=== PATIENT | male | born 1970 | race Caucasian/White ===

== ENCOUNTER 2017-08-12 09:06 | Emergency (ER) | payer BC ==
--- NOTE | 2017-08-12 09:50 | EDM.PDOC ---
ED HPI GENERAL MEDICAL PROBLEM - General Stated Complaint: LEFT WRIST PAIN Time Seen by Provider: 08/12/17 09:21 Source of Information: Reports: Patient History Limitations: Reports: No Limitations - History of Present Illness INITIAL COMMENTS - FREE TEXT/NARRATIVE: Pt. states that he fell on the ice 2 days ago, landing on an outstretched L hand. Denies stiking his head. Denies paresthesia in the distal portion of the hand/fingers. Denies any injury other than what is isolated to his L wrist. Pt. states that he "doesn't think it is broken" and apologized numerous times for "wasting our time". Pt. was assured that he wasn't wasting anyone's time, and that he could use the ER any time he felt he needed to. Location: Reports: Upper Extremity, Left Quality: Reports: Ache - Related Data Allergies Allergy/AdvReac Type Severity Reaction Status Date / Time No Known Allergies Allergy Verified 07/08/15 12:49 ED ROS GENERAL - Review of Systems Review Of Systems: See Below Musculoskeletal: Reports: Other (L wrist pain) Skin: Reports: No Symptoms Neurological: Reports: No Symptoms ED EXAM, GENERAL - Physical Exam Exam: See Below Exam Limited By: No Limitations General Appearance: Alert, WD/WN, No Apparent Distress Peripheral Pulses: 3+: Radial (L), Radial (R) Extremities: Normal Capillary Refill, Limited Range of Motion, Other (No ecchymosis or significant edema noted to the wrist. No crepitus noted.) Neurological: Alert, Oriented, Normal Cognition, Normal Gait, No Motor/Sensory Deficits. No: Sensory/Motor Deficit Psychiatric: Anxious Departure - Departure Time of Disposition: 09:25 Disposition: Eloped 07 Clinical Impression: Wrist pain, acute - Discharge Information - Assessment/Plan Assessment:: L wrist pain Plan: Pt. 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 He had already before I could speak with the pt.
[2017-08-12 14:49] VITALS: BP 144/107
== END 2017-08-12 09:25 | disposition left against medical advice (07) ==
LOC: VM.ED 09:06
DX: M25.532 Pain in left wrist (principal)
CPT/HCPCS: 99283

== ENCOUNTER 2019-10-08 17:00 | Emergency (ER) | payer BC, MEDICAID ==
[2019-10-08 17:39] LABS: ANION GAP 20.4 mmol/L (10-20); CHLORIDE,CL 108 mmol/L (98-107); SODIUM,NA 142 mmol/L (136-145)
--- NOTE | 2019-10-08 17:40 | EDM.PDOC ---
ED HPI GENERAL MEDICAL PROBLEM - General Chief Complaint: Drug or Alcohol Abuse Stated Complaint: Passed out Time Seen by Provider: 10/08/19 17:15 Source of Information: Reports: Patient, EMS, Family History Limitations: Reports: No Limitations - History of Present Illness INITIAL COMMENTS - FREE TEXT/NARRATIVE: Patient brought in via EMS after being found at home laying next to a car on the ground. Patient states he has been moving all day today and not sure how he ended up on the ground. Per his girlfriend via telephone call she states she watched him fall states he was carrying a microwave to the vehicle and kind of slumped over while putting the microwave in the car. Per the patient's he states he had 5 or 6 shots of 99 bananas liquor today but per the girlfriend states he has not drank anything since yesterday with a drink about 8-9 shots of 99 banana liquor. Patient states that he has been trying to cut back to quit drinking over the last couple of days states he normally drinks 5 or 6 shots a day states he wants to quit but he does not want to go through detox states he can do this on his own. Patient has no complaints at this time. He has no health problems and takes no medications he has no allergies no known medications Onset: Today Duration: Hour(s): Associated Symptoms: Reports: No Other Symptoms. 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 Denies: Oxygen - Related Data Allergies Allergy/AdvReac Type Severity Reaction Status Date / Time No Known Allergies Allergy Verified 10/08/19 17:21 Home Meds: Home Meds . 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 Denies: Chest Pain, Blood Pressure Problem, Claudication, Dyspnea on Exertion, Lightheadedness, Palpitations Endocrine: Reports: No Symptoms GI/Abdominal: Reports: No Symptoms. Denies: Abdominal Pain, Black Stool, Bloody Stool, Constipation, Nausea : Reports: No Symptoms Musculoskeletal: Reports: No Symptoms Skin: Reports: No Symptoms Neurological: Reports: Syncope. Denies: Confusion, Dizziness, Headache, Numbness, Paresthesia, Pre-Existing Deficit, Seizure, Tingling, Tremors, Trouble Speaking, Difficulty Walking, Weakness, Change in Speech, Gait Disturbance Psychiatric: Reports: No Symptoms Hematologic/Lymphatic: Reports: No Symptoms Immunologic: Reports: No Symptoms - Physical Exam Exam: See Below Exam Limited By: Other (Patient is alert and oriented except a year but has normal conversation and normal logical thought process answers all questions and follows all commands appropriately. He is noted to be tachycardic and hypertensive at this time although he gives no signs or symptoms of any endorgan damage.) General Appearance: Alert, WD/WN, No Apparent Distress Eye Exam: Bilateral Eye: EOMI, PERRL (perrla ) Ears: Normal External Exam, Normal Canal, Hearing Grossly Normal, Normal TMs, Other (No noted blood behind the panic membrane bilateral) Nose: Normal Inspection, Normal Mucosa, No Blood, Other (There is no evidence or signs or symptoms of any facial or head trauma there is no tenderness palpation over any of the sinus cavities or crepitus abrasions or ecchymosis) Throat/Mouth: Normal Inspection, Normal Lips, Normal Teeth, Normal Gums, Normal Oropharynx, Normal Voice, No Airway Compromise, Evidence of Tongue Biting ( There is a mild 2 mm superficial abrasion noted to the right side of the tongue) Head Exam: Atraumatic, Normocephalic. No: Scalp Lacerations, Scalp Swelling, Scalp Tenderness, Facial Abrasions, Facial Ecchymosis Neck: Normal Inspection, Supple, Non-Tender, Full Range of Motion, Other ( Patient has full range of motion with his neck no tenderness palpation or step- offs noted) Respiratory/Chest: No Respiratory Distress, Lungs Clear, Normal Breath Sounds, No Accessory Muscle Use, Chest Non-Tender Cardiovascular: Normal Peripheral Pulses, Regular Rate, Rhythm, No Edema, No Gallop, No JVD, No Murmur, No Rub, Tachycardia GI/Abdominal: Normal Bowel Sounds, Soft, Non-Tender, No Organomegaly, No Distention. 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 extremities lower extremity bilateral) Back Exam: Normal Inspection Extremities: Normal Inspection, Normal Range of Motion, Non-Tender, No Pedal Edema Psychiatric: Normal Affect, Normal Mood Skin Exam: Warm, Dry, Intact, Normal Color, No Rash Course - Vital Signs Text/Narrative:: CBC BMP urinalysis uds head CT was performed secondary to syncopal episode/ questionable fall and the patient not being alerted to what year this is EKG Patient was seen by myself Ethan Bullock PA-C for some reason the computer keeps coming up to Isaiah justin as a provider he did not see ,examine he had interaction and was not in the facility at the time of the patient's arrival Head CT negative CBC 9.8 hemoglobin 30 hematocrit potassium 3.4 glucose 166 patient states he is not able to void will not give a urine or UDS sample Patient at this time wishes to go home and signed out AMA he is alert and oriented x4 follows all neurological exam cranial nerves II through XII are intact he has normal Romberg [id number] converses well and follows all commands appropriately I explained to him the risk versus benefits and course of treatment at this time he states he does not want any wants to go home he is willing to sign out AMA. I discussed with him in regards to the tachycardia and hypertension he states he will follow-up as an outpatient and again he does not wish to stay or be further evaluated and will sign out AMA. Last Recorded V/S: Last Vital Signs Temp 37.3 C 10/08/19 17:00 Pulse 137 H 10/08/19 17:00 Resp 20 10/08/19 17:00 BP 180/107 H 10/08/19 17:00 Pulse Ox 98 10/08/19 17:00 - Orders/Labs/Meds Orders: Active Orders 24 hr Category Date Time Status EKG 12 Lead [EKG Documentation Completion] [RC] URGENT Care 10/08/19 17:46 Active DRUG SCREEN, URINE [URCHEM] Stat Lab 10/08/19 17:59 Ordered UA W/MICROSCOPIC [URIN] Stat Lab 10/08/19 17:17 Ordered Sodium Chloride 0.9% [Normal Saline] 1,000 ml Med 10/08/19 17:50 Active IV ONETIME Medication Orders Sodium Chloride (Normal Saline) 1,000 mls @ 999 mls/hr IV ONETIME ONE Stop: 10/08/19 18:50 Last Admin: 10/08/19 17:52 Dose: 999 mls/hr Labs: Laboratory Tests 10/08/19 10/08/19 Range/Units 17:20 17:20 WBC 7.5 (4.0-10.0) x10^3/uL RBC 3.25 L (4.5-6.0) x10^6/uL Hgb 9.8 L (14.0-18.0) g/dL Hct 30.3 L (40.0-52.0) % MCV 93.2 H (78.0-93.0) fL MCH 30.2 (26.0-32.0) pg MCHC 32.3 (32.0-36.0) g/dL RDW Coeff of Familia 19.2 H (10.0-15.0) % Plt Count 120 L (130-400) x10^3/uL Neut % (Auto) 75.8 (50.0-80.0) % Lymph % (Auto) 17.5 L (25.0-50.0) % Traverse % (Auto) 6.0 (2.0-11.0) % Eos % (Auto) 0.4 (0.0-4.0) % Baso % (Auto) 0.3 (0.2-1.2) % Sodium 142 (136-145) mmol/L Potassium 3.4 L (3.5-5.1) mmol/L Chloride 108 H (98-107) mmol/L Carbon Dioxide 17 L (21-32) mmol/L Anion Gap 20.4 H (10-20) mmol/L BUN 14 (7-18) mg/dL Creatinine 1.2 (0.70-1.30) mg/dL Est Cr Clr Drug Dosing TNP Estimated GFR (MDRD) > 60 Glucose 166 H (74-106) mg/dL Calcium 8.7 (8.5-10.1) mg/dL Meds: Medications Generic Name Dose Route Start Last Admin Trade Name Freq PRN Reason Stop Dose Admin Sodium Chloride 1,000 mls @ 999 mls/hr 10/08/19 17:50 10/08/19 17:52 Normal Saline IV 10/08/19 18:50 999 mls/hr ONETIME ONE Administration Departure - Departure Time of Disposition: 18:15 Disposition: Against Medical Advice 07 Condition: Good Clinical Impression: Syncope and collapse, Hypertension - Discharge Information *PRESCRIPTION DRUG MONITORING PROGRAM REVIEWED*: No *COPY OF PRESCRIPTION DRUG MONITORING REPORT IN PATIENT SHABBIR: No Instructions: Near-Syncope, [id number], Hypertension, Adult, [id number] Referrals: PCP,None [Primary Care Provider] - Forms: ED Department Discharge Additional Instructions: Return to the emergency room if anything changes or gets worse such as passing out lightheadedness dizziness nausea vomiting headache vision changes or anything that does not feel normal to yourself Follow-up with her primary care provider in the next 24 to 48 hours Make sure you drink plenty of fluids over the next 24 hours eight 8 ounce glasses of water daily is recommended Sepsis Event Note - Evaluation Sepsis Screening Result: No Definite Risk - Focused Exam Vital Signs: Vital Signs Temp Pulse Resp BP Pulse Ox 10/08/19 17:00 37.3 C 137 H 20 180/107 H 98 Date Exam was Performed: 10/08/19 Time Exam was Performed: 18:20 - Problem List & Annotations (1) Hypertension SNOMED Code(s): 47056673 Code(s): I10 - ESSENTIAL (PRIMARY) HYPERTENSION Status: Acute Current Visit: Yes (2) Syncope and collapse SNOMED Code(s): 127638945 Code(s): R55 - SYNCOPE AND COLLAPSE Status: Acute Current Visit: Yes - My Orders Last 24 Hours: My Active Orders 10/08/19 17:17 UA W/MICROSCOPIC [URIN] Stat 10/08/19 17:46 EKG 12 Lead [EKG Documentation Completion] [RC] URGENT 10/08/19 17:59 DRUG SCREEN, URINE [URCHEM] Stat - Assessment/Plan Last 24 Hours: My Active Orders 10/08/19 17:17 UA W/MICROSCOPIC [URIN] Stat 10/08/19 17:46 EKG 12 Lead [EKG Documentation Completion] [RC] URGENT 10/08/19 17:59 DRUG SCREEN, URINE [URCHEM] Stat
[2019-10-08] MEDS ORDERED: Sodium Chloride 0.9% 1,000 ML IV ONE (17:50)
--- NOTE | 2019-10-08 17:59 | CT ---
[id number] CT/CT Head WO IV EXAM: CT Head WO IV CLINICAL DATA: LOC ETOH. COMPARISON STUDY: None FINDINGS: No intracranial hemorrhage, extra-axial fluid collection, mass, or acute ischemia. Soft tissues are unremarkable. Paranasal sinuses and mastoid air cells are clear. IMPRESSION: No acute intracranial findings. Rodney Leone DO 10/08/19 [id number] Thank you for allowing us to participate in the care of your patient.
[2019-10-08 18:28] VITALS: BP 160/105; PULSE 125
== END 2019-10-08 18:29 | disposition left against medical advice (07) ==
LOC: VM.ED 17:00
DX: R55 Syncope and collapse (principal); F17.210 Nicotine dependence, cigarettes, uncomplicated; I10 Essential (primary) hypertension
CPT/HCPCS: 36415; 70450; 80048; 85025; 93005; 96360; 99285; J7030; 99284-GF

== ENCOUNTER 2021-02-02 15:46 | Inpatient (IN) | payer BC, MEDICAID ==
[2021-02-02] MEDS ORDERED: Sodium Chloride 0.9% 1,000 ML IV SCH ×2 (16:45→19:00)
[2021-02-02 16:51] LABS: ANION GAP 34.2 mmol/L (5-15); CHLORIDE,CL 82 mmol/L (98-107)
[2021-02-02 16:55] LABS: SODIUM,NA 124 mmol/L (136-145)
[2021-02-02] MEDS ORDERED: Sodium Chloride 0.9% 10 ML Syringe FLUSH PRN (17:07)
[2021-02-02] MEDS ORDERED: Piperacillin/Tazobactam 3.375 GM in Sodium Chloride 0.9% 100 ML IV ONE (17:08)
--- NOTE | 2021-02-02 17:28 | EDM.PDOC ---
ED HPI GENERAL MEDICAL PROBLEM - General Stated Complaint: ER Time Seen by Provider: 02/02/21 19:26 Source of Information: Reports: Patient History Limitations: Reports: Altered Mental Status - History of Present Illness INITIAL COMMENTS - FREE TEXT/NARRATIVE: Pt. presents to ER with complaints of abdominal pain, nausea, vomiting, jaundice, and fatigue. Pt. states that he has been feeling poorly for about 5 days. He noticed he was jaundiced today. He has been experiencing bright red rectal bleeding for some time, and is scheduled to have a lower GI scope next month. States that he has had hemorrhoids with bright rectal bleeding for about 10 years but states that it is worse the past few days. He is an alcoholic. Pt. states that he drinks about 6-7 drinks per day. Liver enzymes were elevated in the clinic 2 weeks ago-alk phos 332, AST 201, ALT 93. T bili was 0.4. It looks as though he has had elevated LFTs for at least 5 years. Denies any substernal chest pain. Complains of shortness of breath, particularly with activity. O2 sat was in the high 90% range in the ambulance. Pt. has been refusing to come to the hospital, but came today when he noticed the jaundice. Onset Date: 01/22/21 Location: Reports: Abdomen, Generalized Associated Symptoms: Reports: Nausea/Vomiting. Denies: Fever/Chills - Related Data Allergies Allergy/AdvReac Type Severity Reaction Status Date / Time No Known Allergies Allergy Verified 01/15/21 13:48 Home Meds: Home Meds lisinopriL [Lisinopril] 10 mg PO DAILY 01/15/21 [History] Past Medical History - Past Health History Medical/Surgical History: Denies Medical/Surgical History Cardiovascular History: Reports: Hypertension Gastrointestinal History: Reports: Other (See Below) Other Gastrointestinal History: rectal bleeding Psychiatric History: Reports: Addiction - Past Surgical History Musculoskeletal Surgical History: Reports: Other (See Below) Other Musculoskeletal Surgeries/Procedures:: 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 Denies: Fever, Chills HEENT: Reports: No Symptoms Respiratory: Reports: Shortness of Breath Cardiovascular: Reports: Dyspnea on Exertion. Denies: Chest Pain, Palpitations Endocrine: Reports: No Symptoms GI/Abdominal: Reports: Abdominal Pain, Bloody Stool, Distension, Nausea : Reports: No Symptoms Musculoskeletal: Reports: No Symptoms Skin: Reports: Jaundice Neurological: Reports: Confusion (mild confusion) Psychiatric: Reports: No Symptoms Hematologic/Lymphatic: Reports: No Symptoms ED EXAM, GENERAL - Physical Exam Exam: See Below Exam Limited By: Intoxication General Appearance: Alert, WD/WN, No Apparent Distress Eye Exam: Bilateral Eye: EOMI, PERRL, Other (jaundice) Throat/Mouth: Normal Inspection, Normal Lips, Normal Voice, No Airway Compromise Head: Atraumatic, Normocephalic Neck: Normal Inspection, Supple, Non-Tender, Full Range of Motion Respiratory/Chest: Lungs Clear, Normal Breath Sounds, No Accessory Muscle Use, Chest Non-Tender Cardiovascular: Normal Peripheral Pulses, Regular Rate, Rhythm, No Edema Peripheral Pulses: 3+: Radial (L) GI/Abdominal: Distended, Rigid, Tender, Hepatomegaly (Male) Exam: Normal Inspection Rectal (Males) Exam: Bloody Stool, Hemorrhoids, Other (Massive hemorrhoids, evidence of previous rectal bleeding) Back Exam: Normal Inspection, Full Range of Motion Extremities: Non-Tender, No Pedal Edema, Normal Capillary Refill Neurological: Alert, Oriented, CN II-XII Intact, No Motor/Sensory Deficits, Confused (Mildly confused, slurred speech (GRISEL greater than 200)) #1 Interpretation Rhythm: NSR [place]: Normal P-Wave: Present QRS: Normal ST-T: Normal QT: Normal Course - Orders/Labs/Meds Orders: Active Orders 24 hr Category Date Time Status EKG Documentation Completion [RC] STAT Care 02/02/21 16:02 Active Insert Lee Catheter [Insert Urinary Catheter] [OM.PC] Care 02/02/21 18:00 Ordered Q24H Urinary Catheter Assessment [RC] ASDIRECTED Care 02/02/21 17:58 Active Abdomen 1V Upright [CR] Stat Exams 02/02/21 18:17 Ordered CULTURE BLOOD [BC] Stat Lab 02/02/21 16:19 Results CULTURE BLOOD [BC] Stat Lab 02/02/21 16:23 Received REFLEX LACTIC ACID YES OR NO [CHEM] Routine Lab 02/02/21 17:07 Received Norepinephrine [Levophed] 4 mg Med 02/02/21 18:00 Active Dextrose 5% in Water 246 ml IV TITRATE Phytonadione [AquaMephyton] 10 mg Med 02/02/21 18:51 Ordered Sodium Chloride 0.9% [Normal Saline] 100 ml IV ONETIME Sodium Chloride 0.9% [Normal Saline] 1,000 ml Med 02/02/21 16:45 Active IV ASDIRECTED Sodium Chloride 0.9% [Normal Saline] 1,000 ml Med 02/02/21 19:00 Ordered IV ASDIRECTED Sodium Chloride 0.9% [Saline Flush] Med 02/02/21 17:07 Active 10 ml FLUSH ASDIRECTED PRN Blood Culture x2 Reflex Set [OM.PC] Stat Oth 02/02/21 16:06 Ordered Peripheral IV Insertion Adult [OM.PC] Routine Oth 02/02/21 17:07 Ordered Medication Orders Sodium Chloride (Normal Saline) 1,000 mls @ 1,000 mls/hr IV ASDIRECTED MACO Last Admin: 02/02/21 17:15 Dose: 1,000 mls/hr Documented by: LUCAS Norepinephrine Bitartrate 4 mg (/ Dextrose/Water) 250 mls @ 15 mls/hr IV TITRATE MACO; Protocol Phytonadione 10 mg/ Sodium (Chloride) 101 mls @ 300 mls/hr IV ONETIME ONE Stop: 02/02/21 19:10 Sodium Chloride (Normal Saline) 1,000 mls @ 1,000 mls/hr IV ASDIRECTED MACO Sodium Chloride (Sodium Chloride 0.9% 10 Ml Syringe) 10 ml FLUSH ASDIRECTED PRN PRN Reason: Keep Vein Open Labs: Laboratory Tests 02/02/21 02/02/21 02/02/21 Range/Units 16:19 16:19 16:19 WBC 16.4 H (4.0-10.0) x10^3/uL RBC 3.63 L (4.5-6.0) x10^6/uL Hgb 10.0 L (14.0-18.0) g/dL Hct 29.5 L (40.0-52.0) % MCV 81.3 (78.0-93.0) fL MCH 27.5 (26.0-32.0) pg MCHC 33.9 (32.0-36.0) g/dL RDW Coeff of Familia 22.2 H (10.0-15.0) % Plt Count 99 L (130-400) x10^3/uL Add Manual Diff Yes Neutrophils % (Manual) 71 (50-80) % Band Neutrophils % 9 H (0-6) % Lymphocytes % (Manual) 14 L (25-50) % Monocytes % (Manual) 4 (2-11) % Eosinophils % (Manual) 2 (0-4) % Absolute Neutrophils 13.1 H (1.8-7.7) x10^3/uL Lymphocytes # (Manual) 2.3 (1.0-4.8) x10^3/uL Monocytes # (Manual) 0.7 (0.0-0.8) x10^3/uL Eosinophils # (Manual) 0.3 (0.0-0.5) x10^3/uL Platelet Estimate Decreased L Anisocytosis 2+ moderate H PT > 133.0 H (9.9-12.5) SEC INR > 13.0 H* (2.0-3.5) APTT (25.6-32.8) SEC Sodium 124 L* (136-145) mmol/L Potassium 3.2 L (3.5-5.1) mmol/L Chloride 82 L (98-107) mmol/L Carbon Dioxide 11 L (21-32) mmol/L Anion Gap 34.2 H (5-15) mmol/L BUN 23 H (7-18) mg/dL Creatinine 3.9 H* D (0.70-1.30) mg/dL Est Cr Clr Drug Dosing TNP Estimated GFR (MDRD) 17 Glucose 165 H (70-99) mg/dL Lactic Acid (0.4-2.0) mmol/L Calcium 7.4 L (8.5-10.1) mg/dL Corrected Calcium 9.2 (8.5-10.1) mg/dL Phosphorus 4.9 H (2.6-4.7) mg/dL Magnesium 2.0 (1.8-2.4) mg/dL Total Bilirubin 16.1 H* (0.2-1.0) mg/dL AST 186 H (15-37) U/L ALT 165 H (16-63) U/L Alkaline Phosphatase 263 H (46-116) U/L Troponin I High Sens 122 H* (<=76) ng/L Total Protein 5.5 L (6.4-8.2) g/dL Albumin 1.7 L (3.4-5.0) g/dL Globulin 3.8 Albumin/Globulin Ratio 0.45 Urine Color (YELLOW) Urine Appearance (CLEAR) Urine pH (5.0-8.0) Ur Specific Mather Urine Protein (NEGATIVE) mg/dL Urine Glucose (UA) (NEGATIVE) mg/dL Urine Ketones (NEGATIVE) mg/dL Urine Occult Blood (NEGATIVE) Urine Nitrite (NEGATIVE) Urine Bilirubin (NEGATIVE) Urine Urobilinogen (0.2) EU/dL Ur Leukocyte Esterase (NEGATIVE) Urine RBC (NOT SEEN) /HPF Urine WBC (NOT SEEN) /HPF Amorphous Sediment Urine Bacteria (NOT SEEN) /HPF Granular Casts (Auto) Urine Mucus (NOT SEEN) /LPF Urine Opiates Screen (NEGATIVE) Ur Buprenorphine Scrn (NEGATIVE) Ur Oxycodone Screen (NEGATIVE) Urine Methadone Screen (NEGATIVE) Ur Barbiturates Screen (NEGATIVE) Ur Phencyclidine Scrn (NEGATIVE) Ur Amphetamine Screen (NEGATIVE) U Methamphetamines Scrn (NEGATIVE) Urine MDMA Screen (NEGATIVE) U Benzodiazepines Scrn (NEGATIVE) U Cocaine Metab Screen (NEGATIVE) U Marijuana (THC) Screen (NEGATIVE) Ethyl Alcohol 208 H (0-3) mg/dL Blood Type 02/02/21 02/02/21 02/02/21 Range/Units 16:19 16:19 16:19 WBC (4.0-10.0) x10^3/uL RBC (4.5-6.0) x10^6/uL Hgb (14.0-18.0) g/dL Hct (40.0-52.0) % MCV (78.0-93.0) fL MCH (26.0-32.0) pg MCHC (32.0-36.0) g/dL RDW Coeff of Familia (10.0-15.0) % Plt Count (130-400) x10^3/uL Add Manual Diff Neutrophils % (Manual) (50-80) % Band Neutrophils % (0-6) % Lymphocytes % (Manual) (25-50) % Monocytes % (Manual) (2-11) % Eosinophils % (Manual) (0-4) % Absolute Neutrophils (1.8-7.7) x10^3/uL Lymphocytes # (Manual) (1.0-4.8) x10^3/uL Monocytes # (Manual) (0.0-0.8) x10^3/uL Eosinophils # (Manual) (0.0-0.5) x10^3/uL Platelet Estimate Anisocytosis PT (9.9-12.5) SEC INR (2.0-3.5) APTT 69.3 H (25.6-32.8) SEC Sodium (136-145) mmol/L Potassium (3.5-5.1) mmol/L Chloride (98-107) mmol/L Carbon Dioxide (21-32) mmol/L Anion Gap (5-15) mmol/L BUN (7-18) mg/dL Creatinine (0.70-1.30) mg/dL Est Cr Clr Drug Dosing Estimated GFR (MDRD) Glucose (70-99) mg/dL Lactic Acid 22.8 H* (0.4-2.0) mmol/L Calcium (8.5-10.1) mg/dL Corrected Calcium (8.5-10.1) mg/dL Phosphorus (2.6-4.7) mg/dL Magnesium (1.8-2.4) mg/dL Total Bilirubin (0.2-1.0) mg/dL AST (15-37) U/L ALT (16-63) U/L Alkaline Phosphatase (46-116) U/L Troponin I High Sens (<=76) ng/L Total Protein (6.4-8.2) g/dL Albumin (3.4-5.0) g/dL Globulin Albumin/Globulin Ratio Urine Color (YELLOW) Urine Appearance (CLEAR) Urine pH (5.0-8.0) Ur Specific [place]ather Urine Protein (NEGATIVE) mg/dL Urine Glucose (UA) (NEGATIVE) mg/dL Urine Ketones (NEGATIVE) mg/dL Urine Occult Blood (NEGATIVE) Urine Nitrite (NEGATIVE) Urine Bilirubin (NEGATIVE) Urine Urobilinogen (0.2) EU/dL Ur Leukocyte Esterase (NEGATIVE) Urine RBC (NOT SEEN) /HPF Urine WBC (NOT SEEN) /HPF Amorphous Sediment Urine Bacteria (NOT SEEN) /HPF Granular Casts (Auto) Urine Mucus (NOT SEEN) /LPF Urine Opiates Screen (NEGATIVE) Ur Buprenorphine Scrn (NEGATIVE) Ur Oxycodone Screen (NEGATIVE) Urine Methadone Screen (NEGATIVE) Ur Barbiturates Screen (NEGATIVE) Ur Phencyclidine Scrn (NEGATIVE) Ur Amphetamine Screen (NEGATIVE) U Methamphetamines Scrn (NEGATIVE) Urine MDMA Screen (NEGATIVE) U Benzodiazepines Scrn (NEGATIVE) U Cocaine Metab Screen (NEGATIVE) U Marijuana (THC) Screen (NEGATIVE) Ethyl Alcohol (0-3) mg/dL Blood Type O POSITIVE 02/02/21 02/02/21 Range/Units 18:10 18:10 WBC (4.0-10.0) x10^3/uL RBC (4.5-6.0) x10^6/uL Hgb (14.0-18.0) g/dL Hct (40.0-52.0) % MCV (78.0-93.0) fL MCH (26.0-32.0) pg MCHC (32.0-36.0) g/dL RDW Coeff of Familia (10.0-15.0) % Plt Count (130-400) x10^3/uL Add Manual Diff Neutrophils % (Manual) (50-80) % Band Neutrophils % (0-6) % Lymphocytes % (Manual) (25-50) % Monocytes % (Manual) (2-11) % Eosinophils % (Manual) (0-4) % Absolute Neutrophils (1.8-7.7) x10^3/uL Lymphocytes # (Manual) (1.0-4.8) x10^3/uL Monocytes # (Manual) (0.0-0.8) x10^3/uL Eosinophils # (Manual) (0.0-0.5) x10^3/uL Platelet Estimate Anisocytosis PT (9.9-12.5) SEC INR (2.0-3.5) APTT (25.6-32.8) SEC Sodium (136-145) mmol/L Potassium (3.5-5.1) mmol/L Chloride (98-107) mmol/L Carbon Dioxide (21-32) mmol/L Anion Gap (5-15) mmol/L BUN (7-18) mg/dL Creatinine (0.70-1.30) mg/dL Est Cr Clr Drug Dosing Estimated GFR (MDRD) Glucose (70-99) mg/dL Lactic Acid (0.4-2.0) mmol/L Calcium (8.5-10.1) mg/dL Corrected Calcium (8.5-10.1) mg/dL Phosphorus (2.6-4.7) mg/dL Magnesium (1.8-2.4) mg/dL Total Bilirubin (0.2-1.0) mg/dL AST (15-37) U/L ALT (16-63) U/L Alkaline Phosphatase (46-116) U/L Troponin I High Sens (<=76) ng/L Total Protein (6.4-8.2) g/dL Albumin (3.4-5.0) g/dL Globulin Albumin/Globulin Ratio Urine Color Dark yellow H (YELLOW) Urine Appearance Clear (CLEAR) Urine pH 5.5 (5.0-8.0) Ur Specific Mather 1.020 Urine Protein Trace H (NEGATIVE) mg/dL Urine Glucose (UA) 100 H (NEGATIVE) mg/dL Urine Ketones Negative (NEGATIVE) mg/dL Urine Occult Blood Trace-lysed H (NEGATIVE) Urine Nitrite Negative (NEGATIVE) Urine Bilirubin Large H (NEGATIVE) Urine Urobilinogen 0.2 (0.2) EU/dL Ur Leukocyte Esterase Negative (NEGATIVE) Urine RBC 0-5 (NOT SEEN) /HPF Urine WBC 0-5 (NOT SEEN) /HPF Amorphous Sediment Few Urine Bacteria Occasional H (NOT SEEN) /HPF Granular Casts (Auto) Few Urine Mucus Occasional H (NOT SEEN) /LPF Urine Opiates Screen Negative (NEGATIVE) Ur Buprenorphine Scrn Negative (NEGATIVE) Ur Oxycodone Screen Negative (NEGATIVE) Urine Methadone Screen Negative (NEGATIVE) Ur Barbiturates Screen Negative (NEGATIVE) Ur Phencyclidine Scrn Negative (NEGATIVE) Ur Amphetamine Screen Negative (NEGATIVE) U Methamphetamines Scrn Negative (NEGATIVE) Urine MDMA Screen Negative (NEGATIVE) U Benzodiazepines Scrn Negative (NEGATIVE) U Cocaine Metab Screen Negative (NEGATIVE) U Marijuana (THC) Screen Negative (NEGATIVE) Ethyl Alcohol (0-3) mg/dL Blood Type Meds: Medications Generic Name Dose Route Start Last Admin Trade Name Freq PRN Reason Stop Dose Admin Sodium Chloride 1,000 mls @ 1,000 mls/hr 02/02/21 16:45 02/02/21 17:15 Normal Saline IV 1,000 mls/hr ASDIRECTED MACO Administration Norepinephrine Bitartrate 4 mg 250 mls @ 15 mls/hr 02/02/21 18:00 / Dextrose/Water IV TITRATE MACO Protocol 4 MCG/MIN Phytonadione 10 mg/ Sodium 101 mls @ 300 mls/hr 02/02/21 18:51 Chloride IV 02/02/21 19:10 ONETIME ONE Sodium Chloride 1,000 mls @ 1,000 mls/hr 02/02/21 19:00 Normal Saline IV ASDIRECTED MACO Sodium Chloride 10 ml 02/02/21 17:07 Sodium Chloride 0.9% 10 Ml Syringe FLUSH ASDIRECTED PRN Keep Vein Open Discontinued Medications Generic Name Dose Route Start Last Admin Trade Name Freq PRN Reason Stop Dose Admin Hydrocortisone Sodium Succinate 100 mg 02/02/21 18:50 Hydrocortisone Sodium Succinate 100 Mg/2 Ml Sdv IVPUSH 02/02/21 18:51 ONETIME ONE Piperacillin Sod/Tazobactam 100 mls @ 200 mls/hr 02/02/21 17:08 02/02/21 17:22 Sod 3.375 gm/ Sodium Chloride IV 02/02/21 17:37 200 mls/hr STAT ONE Administration Morphine Sulfate 2 mg 02/02/21 17:29 02/02/21 17:35 Morphine 2 Mg/Ml Syringe IVPUSH 02/02/21 17:30 2 mg ONETIME ONE Administration - Re-Assessments/Exams Free Text/Narrative Re-Assessment/Exam: Initial BP was 116/40. BP did drop to 80/40. Pt. currently has had approx. 1000ml bolus of normal saline. BP did improve to 91/46. Pt. was started on IV zosyn 3.375gm IV. His INR was found to be greater than 13. He will be started on FFP. Pt. started on levophed at 2 mcg/min, increased to 4mcg/min. He was fluid resuscitated with a total of 2 liters of NS in ER. Per discussion with Dr. Page at [facility], he was also given vitamin K 10u IV and hydrocortisone 100mg IV Departure - Departure Time of Disposition: 19:14 Disposition: Admitted As Inpatient 68 Clinical Impression: Alcohol intoxication, Hepatorenal failure, Coagulopathy, GI bleed - Discharge Information - Problem List Review Problem List Initiated/Reviewed/Updated: Yes - My Orders Last 24 Hours: My Active Orders 02/02/21 16:02 EKG Documentation Completion [RC] STAT 02/02/21 16:06 Blood Culture x2 Reflex Set [OM.PC] Stat 02/02/21 16:19 CULTURE BLOOD [BC] Stat 02/02/21 16:23 CULTURE BLOOD [BC] Stat 02/02/21 16:45 Sodium Chloride 0.9% [Normal Saline] 1,000 ml IV ASDIRECTED 02/02/21 17:07 REFLEX LACTIC ACID YES OR NO [CHEM] Routine Sodium Chloride 0.9% [Saline Flush] 10 ml FLUSH ASDIRECTED PRN Peripheral IV Insertion Adult [OM.PC] Routine 02/02/21 17:58 Urinary Catheter Assessment [RC] ASDIRECTED 02/02/21 18:00 Insert Lee Catheter [Insert Urinary Catheter] [OM.PC] Q24H Norepinephrine [Levophed] 4 mg Dextrose 5% in Water 246 ml IV TITRATE 02/02/21 18:17 Abdomen 1V Upright [CR] Stat 02/02/21 18:51 Phytonadione [AquaMephyton] 10 mg Sodium Chloride 0.9% [Normal Saline] 100 ml IV ONETIME 02/02/21 19:00 Sodium Chloride 0.9% [Normal Saline] 1,000 ml IV ASDIRECTED - Assessment/Plan Last 24 Hours: My Active Orders 02/02/21 16:02 EKG Documentation Completion [RC] STAT 02/02/21 16:06 Blood Culture x2 Reflex Set [OM.PC] Stat 02/02/21 16:19 CULTURE BLOOD [BC] Stat 02/02/21 16:23 CULTURE BLOOD [BC] Stat 02/02/21 16:45 Sodium Chloride 0.9% [Normal Saline] 1,000 ml IV ASDIRECTED 02/02/21 17:07 REFLEX LACTIC ACID YES OR NO [CHEM] Routine Sodium Chloride 0.9% [Saline Flush] 10 ml FLUSH ASDIRECTED PRN Peripheral IV Insertion Adult [OM.PC] Routine 02/02/21 17:58 Urinary Catheter Assessment [RC] ASDIRECTED 02/02/21 18:00 Insert Lee Catheter [Insert Urinary Catheter] [OM.PC] Q24H Norepinephrine [Levophed] 4 mg Dextrose 5% in Water 246 ml IV TITRATE 02/02/21 18:17 Abdomen 1V Upright [CR] Stat 02/02/21 18:51 Phytonadione [AquaMephyton] 10 mg Sodium Chloride 0.9% [Normal Saline] 100 ml IV ONETIME 02/02/21 19:00 Sodium Chloride 0.9% [Normal Saline] 1,000 ml IV ASDIRECTED Plan: Pt. is critically ill and likely will not survive the night. Discussed case at length with Dr. Page at [facility] (tobacco packer). He states that at this point he would not change his care. He advised against coding the patient when/if this happens. He will be kept a DNR/DNI at this point. Currently there are no critical care beds available at all in the [facility]. [facility] does have him on the list for possible transfer tomorrow if he survives the night. Will continue to titrate levophed. He was given a unit of FFP. He will be further fluid resuscitated with NS overnight. Discussed findings with patient, his , and his son. They are in agreement to not do CPR. Will institute comfort care protocols. He is mildly agitated at this point and will be started on IV ativan. Pt. admitted acutely by Lion Sotomayor. Care will be assumed by Dr. Montano in the AM.
[2021-02-02] MEDS ORDERED: Morphine 2 MG/ML SYRINGE IVPUSH ONE (17:29)
[2021-02-02] MEDS ORDERED: Norepinephrine 4 MG in Dextrose 5% in Water 246 ML IV SCH ×2 (18:00)
[2021-02-02 18:36] LABS: BARBITURATE SCREEN,URINE NEGATIVE (NEGATIVE)
[2021-02-02 18:37] LABS: BENZODIAZEPINES SCREEN,URINE NEGATIVE (NEGATIVE); BUPRENORPHINE SCREEN,URINE NEGATIVE (NEGATIVE); METHAMPHETAMINE SCREEN, URINE NEGATIVE (NEGATIVE); THC SCREEN,URINE 50 NG/ML NEGATIVE (NEGATIVE)
--- NOTE | 2021-02-02 18:43 | CR ---
[id number] RAD/RAD Abdomen Flat Plate 1V EXAM: RAD Abdomen Flat Plate 1V INDICATION: ABDOMINAL PAIN, DISTENTION, HEPATORENAL FAILURE COMPARISON: None. Discussion/Impression: Unobstructed bowel gas pattern. No radiographically evident pneumoperitoneum. Castro Pineda MD 02/02/21 [id number] Thank you for allowing us to participate in the care of your patient.
--- NOTE | 2021-02-02 18:43 | CR ---
[id number] RAD/RAD Chest PA or AP 1V EXAM: RAD Chest PA or AP 1V INDICATION: SHORT OF BREATH COMPARISON: None. DISCUSSION/IMPRESSION: Cardiomediastinal silhouette is normal in size and contour. Low lung volumes result in bibasal vascular crowding and atelectasis. Lungs are otherwise clear. No pleural effusion or pneumothorax. Castro Pineda MD 02/02/21 [phone] Thank you for allowing us to participate in the care of your patient.
[2021-02-02] MEDS ORDERED: Hydrocortisone Sodium Succinate 100 MG/2 ML SDV IVPUSH ONE (18:50)
[2021-02-02] MEDS ORDERED: LORazepam 2 MG/ML SDV IVPUSH ONE (19:07)
[2021-02-02] MEDS ORDERED: Lactulose Soln 10 GM/15 ML 30 ML UD Cup PO SCH (19:30)
[2021-02-02] MEDS ORDERED: Ondansetron 4 MG/2 ML SDV IVPUSH PRN (19:32)
[2021-02-02] MEDS ORDERED: Morphine Oral Concentrate 20 MG/ML 30 ML Bottle PO PRN (19:32)
[2021-02-02] MEDS ORDERED: Atropine 1% Ophth Soln 5 ML BOTTLE SL PRN (19:32)
[2021-02-02] MEDS ORDERED: Morphine 10 MG/ML SDV IVPUSH PRN (19:41)
[2021-02-02 21:51] VITALS: BP 89/38; PULSE 88
--- NOTE | 2021-02-03 06:25 | HP ---
Admission history and physical to the acute care floor at [facility]. CHIEF COMPLAINT: Abdominal pain. HISTORY OF PRESENT ILLNESS: A 50-year-old male patient brought himself to the emergency room this evening due to abdominal pain. The patient has a longstanding history of severe alcoholism. The patient states that he drinks 10 to 12 shooters per day. The patient states that his abdominal pain has progressively gotten worse over the past few days. The patient has been having significant rectal bleeding. The patient's last drink was at 4:30 p.m. this afternoon. The patient denies any headache, dizziness, or lightheadedness. He states his abdominal pain is generalized. The patient feels very nauseous. He has not vomited. The patient has had several bloody stools over the past couple of days. The patient denies any chest pain or palpitations. The patient is feeling short of breath. He does not have a cough. The patient is not sure if he has had any recent fevers or chills. This patient is known for severe alcoholism. He also has essential hypertension. He was recently seen at [facility] on 01/15/2021 for his alcoholism and rectal bleeding. The patient did not follow up with his provider at [place]. PAST MEDICAL HISTORY: 1. Essential hypertension. 2. Rectal bleeding. 3. Alcohol use disorder, severe, dependence. PAST SURGICAL HISTORY: Knee surgery. FAMILY HISTORY: Noncontributory. SOCIAL HISTORY: The patient is currently to his , Angella. The patient has 1 stepson. The patient does smoke on a regular basis. The patient smokes cigarettes. The patient drinks alcohol on a daily basis. ALLERGIES: No known allergies. MEDICATIONS: Lisinopril 10 mg p.o. daily. REVIEW OF SYSTEMS: See HPI. PHYSICAL EXAMINATION: Vital Signs: See nursing documentation. Skin: Extremely jaundiced, multiple bruises on upper extremities, blood around rectal area. Respiratory: The patient is tachypneic. Lungs are decreased. No atelectasis or rhonchi. Cardiovascular: The patient is tachycardic. Regular rhythm. Abdomen: Extremely distended and tender. Bowel sounds are hypoactive x4. Neurological: The patient is confused. The patient picks and attempts to climb out of bed. The patient is conversive. LABORATORY STUDIES: 1. CBC: White blood cell count 16.3, hemoglobin 10.0, hematocrit 29.5, platelets 99,000. 2. PT greater than 133, INR greater than 13.0. 3. CMP: Sodium 124, potassium 3.2, chloride 82, CO2 of 11, anion gap 34.2, BUN 23, creatinine 3.9, GFR 17, glucose 165, calcium 7.4, AST 186, ALT 165, alkaline phosphatase 263, protein 5.5. 4. Lactic acid 22.8. 5. Phosphorus 4.9. 6. Magnesium 2.0. 7. Troponin 122. IMAGING STUDIES: 1. Abdominal x-ray does not show any obstructive bowel gas pattern. No radiographically evident pneumoperitoneum. 2. Chest x-ray does not show any pleural effusion or pneumothorax. ASSESSMENT: 1. Severe alcoholic hepatitis. 2. Multisystem organ failure. 3. LAKIA 4. Cardiogenic shock secondary to alcohol abuse 5. Comfort Cares/End of Life PLAN: Long and extensive discussed held with patient and his regarding the severe nature of his current health status. Decision was made between and patient for comfort cares only. Will stop Levophed, and start on comfort care medications. Patient is a Code 3/Comfort Care per his wishes. No additional labs. No additional imaging studies. Will start Morphine and Valium, as well as Zofran. Thoroughly explained to patient and , the patient may not live through the night. Patient verbalized understanding. TB: 02/02/2021 19:49:31 MODL: 02/02/2021 21:32:36 /[id number]
--- NOTE | 2021-02-03 07:15 | PCM.DCSUM1 ---
Discharge Summary - Hospital Course HPI Initial Comments: Patient presented to the ER early this evening with abdominal pain. Patient found to be in multisystem failure 2/2 to chronic alcohol abuse. See lab results. Long discussed held with patient at bedside and on phone with Angella. Patient/Family request Code 3 and comfort cares only. Patient admitted to [facility] in grave condition. Diagnosis: Stroke: No Modified [place] Scale: No Symptoms at All Modified [place] Scale Score: 0 - Discharge Data Discharge Date: 02/02/21 Discharge Disposition: 20 Preliminary Cause of *Q: Multi System Organ Failure Condition: - Referral to Home Health Primary Care Physician: Joanna Montano PA-C - Discharge Diagnosis/Problem(s) (1) Alcoholic hepatitis SNOMED Code(s): 891354975 ICD Code: K70.10 - ALCOHOLIC HEPATITIS WITHOUT ASCITES Status: Acute Priority: High Qualifiers: Ascites presence: unspecified Qualified Code(s): K70.10 - Alcoholic hepatitis without ascites (2) Multisystem organ failure SNOMED Code(s): 46915068 ICD Code: [id number] - Status: Acute Priority: High (3) Alcohol intoxication SNOMED Code(s): 03948485 ICD Code: F10.129 - ALCOHOL ABUSE WITH INTOXICATION, UNSPECIFIED Status: Acute Priority: High Qualifiers: Complication of substance-induced condition: with delirium Qualified Code(s): F10.921 - Alcohol use, unspecified with intoxication delirium (4) Hepatorenal failure SNOMED Code(s): 38947987 ICD Code: K76.7 - HEPATORENAL SYNDROME Status: Acute Priority: High - Patient Summary/Data Operative Procedure(s) Performed: None Labs Pending at D/C: None Hospital Course: Patient admitted in grave condition. Levophed stopped per patient/family request. Patient continued to decline. Patient confused on admit. Patient and family request comfort cares only. - Patient Instructions Diet: NPO - Discharge Plan *PRESCRIPTION DRUG MONITORING PROGRAM REVIEWED*: Not Applicable *COPY OF PRESCRIPTION DRUG MONITORING REPORT IN PATIENT SHABBIR: Not Applicable - Discharge Summary/Plan Comment DC Time >30 min.: No Total # of Minutes for Discharge Time: 10 Discharge Summary/Plan Comment: Patient assessed. No response to verbal or obnoxious stimuli. Patient spontaneous respirations. No spontaneous heart beat. Patient pronounced at 22:14 on 02/02/2021. No family at bedside. MELD score = 40. - Patient Data Vitals - Most Recent: Last Vital Signs Temp 98 F 02/02/21 19:32 Pulse 88 02/02/21 19:32 Resp 24 H 02/02/21 19:32 BP 89/38 L 02/02/21 19:32 Pulse Ox 98 02/02/21 19:32 Weight - Most Recent: 189 lb I&O - Last 24 hours: Intake & Output 02/02/21 02/03/21 02/03/21 22:59 06:59 14:59 Intake Total 0 Balance 0 Lab Results - Last 24 hrs: Laboratory Results - last 24 hr 02/02/21 02/02/21 02/02/21 Range/Units 07:20 16:19 16:19 WBC 16.4 H (4.0-10.0) x10^3/uL RBC 3.63 L (4.5-6.0) x10^6/uL Hgb 10.0 L (14.0-18.0) g/dL Hct 29.5 L (40.0-52.0) % MCV 81.3 (78.0-93.0) fL MCH 27.5 (26.0-32.0) pg MCHC 33.9 (32.0-36.0) g/dL RDW Coeff of Familia 22.2 H (10.0-15.0) % Plt Count 99 L (130-400) x10^3/uL Add Manual Diff Yes Neutrophils % (Manual) 71 (50-80) % Band Neutrophils % 9 H (0-6) % Lymphocytes % (Manual) 14 L (25-50) % Monocytes % (Manual) 4 (2-11) % Eosinophils % (Manual) 2 (0-4) % Absolute Neutrophils 13.1 H (1.8-7.7) x10^3/uL Lymphocytes # (Manual) 2.3 (1.0-4.8) x10^3/uL Monocytes # (Manual) 0.7 (0.0-0.8) x10^3/uL Eosinophils # (Manual) 0.3 (0.0-0.5) x10^3/uL Platelet Estimate Decreased L Anisocytosis 2+ moderate H PT > 133.0 H (9.9-12.5) SEC INR > 13.0 H* (2.0-3.5) APTT (25.6-32.8) SEC Sodium (136-145) mmol/L Potassium (3.5-5.1) mmol/L Chloride (98-107) mmol/L Carbon Dioxide (21-32) mmol/L Anion Gap (5-15) mmol/L BUN (7-18) mg/dL Creatinine (0.70-1.30) mg/dL Est Cr Clr Drug Dosing Estimated GFR (MDRD) Glucose (70-99) mg/dL Lactic Acid 21.7 H* (0.4-2.0) mmol/L Calcium (8.5-10.1) mg/dL Corrected Calcium (8.5-10.1) mg/dL Phosphorus (2.6-4.7) mg/dL Magnesium (1.8-2.4) mg/dL Total Bilirubin (0.2-1.0) mg/dL AST (15-37) U/L ALT (16-63) U/L Alkaline Phosphatase (46-116) U/L Troponin I High Sens (<=76) ng/L Total Protein (6.4-8.2) g/dL Albumin (3.4-5.0) g/dL Globulin Albumin/Globulin Ratio Urine Color (YELLOW) Urine Appearance (CLEAR) Urine pH (5.0-8.0) Ur Specific [place] Urine Protein (NEGATIVE) mg/dL Urine Glucose (UA) (NEGATIVE) mg/dL Urine Ketones (NEGATIVE) mg/dL Urine Occult Blood (NEGATIVE) Urine Nitrite (NEGATIVE) Urine Bilirubin (NEGATIVE) Urine Urobilinogen (0.2) EU/dL Ur Leukocyte Esterase (NEGATIVE) Urine RBC (NOT SEEN) /HPF Urine WBC (NOT SEEN) /HPF Amorphous Sediment Urine Bacteria (NOT SEEN) /HPF Granular Casts (Auto) Urine Mucus (NOT SEEN) /LPF Urine Opiates Screen (NEGATIVE) Ur Buprenorphine Scrn (NEGATIVE) Ur Oxycodone Screen (NEGATIVE) Urine Methadone Screen (NEGATIVE) Ur Barbiturates Screen (NEGATIVE) Ur Phencyclidine Scrn (NEGATIVE) Ur Amphetamine Screen (NEGATIVE) U Methamphetamines Scrn (NEGATIVE) Urine MDMA Screen (NEGATIVE) U Benzodiazepines Scrn (NEGATIVE) U Cocaine Metab Screen (NEGATIVE) U Marijuana (THC) Screen (NEGATIVE) Ethyl Alcohol (0-3) mg/dL SARS CoV-2 RNA Rapid KATY (NEGATIVE) Blood Type 02/02/21 02/02/21 02/02/21 Range/Units 16:19 16:19 16:19 WBC (4.0-10.0) x10^3/uL RBC (4.5-6.0) x10^6/uL Hgb (14.0-18.0) g/dL Hct (40.0-52.0) % MCV (78.0-93.0) fL MCH (26.0-32.0) pg MCHC (32.0-36.0) g/dL RDW Coeff of Familia (10.0-15.0) % Plt Count (130-400) x10^3/uL Add Manual Diff Neutrophils % (Manual) (50-80) % Band Neutrophils % (0-6) % Lymphocytes % (Manual) (25-50) % Monocytes % (Manual) (2-11) % Eosinophils % (Manual) (0-4) % Absolute Neutrophils (1.8-7.7) x10^3/uL Lymphocytes # (Manual) (1.0-4.8) x10^3/uL Monocytes # (Manual) (0.0-0.8) x10^3/uL Eosinophils # (Manual) (0.0-0.5) x10^3/uL Platelet Estimate Anisocytosis PT (9.9-12.5) SEC INR (2.0-3.5) APTT 69.3 H (25.6-32.8) SEC Sodium 124 L* (136-145) mmol/L Potassium 3.2 L (3.5-5.1) mmol/L Chloride 82 L (98-107) mmol/L Carbon Dioxide 11 L (21-32) mmol/L Anion Gap 34.2 H (5-15) mmol/L BUN 23 H (7-18) mg/dL Creatinine 3.9 H* D (0.70-1.30) mg/dL Est Cr Clr Drug Dosing TNP Estimated GFR (MDRD) 17 Glucose 165 H (70-99) mg/dL Lactic Acid 22.8 H* (0.4-2.0) mmol/L Calcium 7.4 L (8.5-10.1) mg/dL Corrected Calcium 9.2 (8.5-10.1) mg/dL Phosphorus 4.9 H (2.6-4.7) mg/dL Magnesium 2.0 (1.8-2.4) mg/dL Total Bilirubin 16.1 H* (0.2-1.0) mg/dL AST 186 H (15-37) U/L ALT 165 H (16-63) U/L Alkaline Phosphatase 263 H (46-116) U/L Troponin I High Sens 122 H* (<=76) ng/L Total Protein 5.5 L (6.4-8.2) g/dL Albumin 1.7 L (3.4-5.0) g/dL Globulin 3.8 Albumin/Globulin Ratio 0.45 Urine Color (YELLOW) Urine Appearance (CLEAR) Urine pH (5.0-8.0) Ur Specific [place] Urine Protein (NEGATIVE) mg/dL Urine Glucose (UA) (NEGATIVE) mg/dL Urine Ketones (NEGATIVE) mg/dL Urine Occult Blood (NEGATIVE) Urine Nitrite (NEGATIVE) Urine Bilirubin (NEGATIVE) Urine Urobilinogen (0.2) EU/dL Ur Leukocyte Esterase (NEGATIVE) Urine RBC (NOT SEEN) /HPF Urine WBC (NOT SEEN) /HPF Amorphous Sediment Urine Bacteria (NOT SEEN) /HPF Granular Casts (Auto) Urine Mucus (NOT SEEN) /LPF Urine Opiates Screen (NEGATIVE) Ur Buprenorphine Scrn (NEGATIVE) Ur Oxycodone Screen (NEGATIVE) Urine Methadone Screen (NEGATIVE) Ur Barbiturates Screen (NEGATIVE) Ur Phencyclidine Scrn (NEGATIVE) Ur Amphetamine Screen (NEGATIVE) U Methamphetamines Scrn (NEGATIVE) Urine MDMA Screen (NEGATIVE) U Benzodiazepines Scrn (NEGATIVE) U Cocaine Metab Screen (NEGATIVE) U Marijuana (THC) Screen (NEGATIVE) Ethyl Alcohol 208 H (0-3) mg/dL SARS CoV-2 RNA Rapid KATY (NEGATIVE) Blood Type 02/02/21 02/02/21 02/02/21 Range/Units 16:19 18:10 18:10 WBC (4.0-10.0) x10^3/uL RBC (4.5-6.0) x10^6/uL Hgb (14.0-18.0) g/dL Hct (40.0-52.0) % MCV (78.0-93.0) fL MCH (26.0-32.0) pg MCHC (32.0-36.0) g/dL RDW Coeff of Familia (10.0-15.0) % Plt Count (130-400) x10^3/uL Add Manual Diff Neutrophils % (Manual) (50-80) % Band Neutrophils % (0-6) % Lymphocytes % (Manual) (25-50) % Monocytes % (Manual) (2-11) % Eosinophils % (Manual) (0-4) % Absolute Neutrophils (1.8-7.7) x10^3/uL Lymphocytes # (Manual) (1.0-4.8) x10^3/uL Monocytes # (Manual) (0.0-0.8) x10^3/uL Eosinophils # (Manual) (0.0-0.5) x10^3/uL Platelet Estimate Anisocytosis PT (9.9-12.5) SEC INR (2.0-3.5) APTT (25.6-32.8) SEC Sodium (136-145) mmol/L Potassium (3.5-5.1) mmol/L Chloride (98-107) mmol/L Carbon Dioxide (21-32) mmol/L Anion Gap (5-15) mmol/L BUN (7-18) mg/dL Creatinine (0.70-1.30) mg/dL Est Cr Clr Drug Dosing Estimated GFR (MDRD) Glucose (70-99) mg/dL Lactic Acid (0.4-2.0) mmol/L Calcium (8.5-10.1) mg/dL Corrected Calcium (8.5-10.1) mg/dL Phosphorus (2.6-4.7) mg/dL Magnesium (1.8-2.4) mg/dL Total Bilirubin (0.2-1.0) mg/dL AST (15-37) U/L ALT (16-63) U/L Alkaline Phosphatase (46-116) U/L Troponin I High Sens (<=76) ng/L Total Protein (6.4-8.2) g/dL Albumin (3.4-5.0) g/dL Globulin Albumin/Globulin Ratio Urine Color Dark yellow H (YELLOW) Urine Appearance Clear (CLEAR) Urine pH 5.5 (5.0-8.0) Ur Specific [place] 1.020 Urine Protein Trace H (NEGATIVE) mg/dL Urine Glucose (UA) 100 H (NEGATIVE) mg/dL Urine Ketones Negative (NEGATIVE) mg/dL Urine Occult Blood Trace-lysed H (NEGATIVE) Urine Nitrite Negative (NEGATIVE) Urine Bilirubin Large H (NEGATIVE) Urine Urobilinogen 0.2 (0.2) EU/dL Ur Leukocyte Esterase Negative (NEGATIVE) Urine RBC 0-5 (NOT SEEN) /HPF Urine WBC 0-5 (NOT SEEN) /HPF Amorphous Sediment Few Urine Bacteria Occasional H (NOT SEEN) /HPF Granular Casts (Auto) Few Urine Mucus Occasional H (NOT SEEN) /LPF Urine Opiates Screen Negative (NEGATIVE) Ur Buprenorphine Scrn Negative (NEGATIVE) Ur Oxycodone Screen Negative (NEGATIVE) Urine Methadone Screen Negative (NEGATIVE) Ur Barbiturates Screen Negative (NEGATIVE) Ur Phencyclidine Scrn Negative (NEGATIVE) Ur Amphetamine Screen Negative (NEGATIVE) U Methamphetamines Scrn Negative (NEGATIVE) Urine MDMA Screen Negative (NEGATIVE) U Benzodiazepines Scrn Negative (NEGATIVE) U Cocaine Metab Screen Negative (NEGATIVE) U Marijuana (THC) Screen Negative (NEGATIVE) Ethyl Alcohol (0-3) mg/dL SARS CoV-2 RNA Rapid KATY (NEGATIVE) Blood Type O POSITIVE 02/02/21 Range/Units 19:39 WBC (4.0-10.0) x10^3/uL RBC (4.5-6.0) x10^6/uL Hgb (14.0-18.0) g/dL Hct (40.0-52.0) % MCV (78.0-93.0) fL MCH (26.0-32.0) pg MCHC (32.0-36.0) g/dL RDW Coeff of Familia (10.0-15.0) % Plt Count (130-400) x10^3/uL Add Manual Diff Neutrophils % (Manual) (50-80) % Band Neutrophils % (0-6) % Lymphocytes % (Manual) (25-50) % Monocytes % (Manual) (2-11) % Eosinophils % (Manual) (0-4) % Absolute Neutrophils (1.8-7.7) x10^3/uL Lymphocytes # (Manual) (1.0-4.8) x10^3/uL Monocytes # (Manual) (0.0-0.8) x10^3/uL Eosinophils # (Manual) (0.0-0.5) x10^3/uL Platelet Estimate Anisocytosis PT (9.9-12.5) SEC INR (2.0-3.5) APTT (25.6-32.8) SEC Sodium (136-145) mmol/L Potassium (3.5-5.1) mmol/L Chloride (98-107) mmol/L Carbon Dioxide (21-32) mmol/L Anion Gap (5-15) mmol/L BUN (7-18) mg/dL Creatinine (0.70-1.30) mg/dL Est Cr Clr Drug Dosing Estimated GFR (MDRD) Glucose (70-99) mg/dL Lactic Acid (0.4-2.0) mmol/L Calcium (8.5-10.1) mg/dL Corrected Calcium (8.5-10.1) mg/dL Phosphorus (2.6-4.7) mg/dL Magnesium (1.8-2.4) mg/dL Total Bilirubin (0.2-1.0) mg/dL AST (15-37) U/L ALT (16-63) U/L Alkaline Phosphatase (46-116) U/L Troponin I High Sens (<=76) ng/L Total Protein (6.4-8.2) g/dL Albumin (3.4-5.0) g/dL Globulin Albumin/Globulin Ratio Urine Color (YELLOW) Urine Appearance (CLEAR) Urine pH (5.0-8.0) Ur Specific [place] Urine Protein (NEGATIVE) mg/dL Urine Glucose (UA) (NEGATIVE) mg/dL Urine Ketones (NEGATIVE) mg/dL Urine Occult Blood (NEGATIVE) Urine Nitrite (NEGATIVE) Urine Bilirubin (NEGATIVE) Urine Urobilinogen (0.2) EU/dL Ur Leukocyte Esterase (NEGATIVE) Urine RBC (NOT SEEN) /HPF Urine WBC (NOT SEEN) /HPF Amorphous Sediment Urine Bacteria (NOT SEEN) /HPF Granular Casts (Auto) Urine Mucus (NOT SEEN) /LPF Urine Opiates Screen (NEGATIVE) Ur Buprenorphine Scrn (NEGATIVE) Ur Oxycodone Screen (NEGATIVE) Urine Methadone Screen (NEGATIVE) Ur Barbiturates Screen (NEGATIVE) Ur Phencyclidine Scrn (NEGATIVE) Ur Amphetamine Screen (NEGATIVE) U Methamphetamines Scrn (NEGATIVE) Urine MDMA Screen (NEGATIVE) U Benzodiazepines Scrn (NEGATIVE) U Cocaine Metab Screen (NEGATIVE) U Marijuana (THC) Screen (NEGATIVE) Ethyl Alcohol (0-3) mg/dL SARS CoV-2 RNA Rapid KATY Negative (NEGATIVE) Blood Type KELSEY Results - Last 24 hrs: Microbiology 02/02/21 16:19 Anaerobic Blood Culture - Final Blood - Venous Med Orders - Current: Current Medications Discontinued Medications Atropine Sulfate (Atropine 1% Ophth Soln 5 Ml Bottle) 0 ml SL Q2H PRN PRN Reason: Copius Secretions Diazepam (Diazepam 10 Mg/2 Ml Syringe) 10 mg IVPUSH Q3H PRN PRN Reason: restlessness,anxiety,agitation Last Admin: 02/02/21 20:12 Dose: 10 mg Documented by: Hydrocortisone Sodium Succinate (Hydrocortisone Sodium Succinate 100 Mg/2 Ml Sdv) 100 mg IVPUSH ONETIME ONE Stop: 02/02/21 18:51 Last Admin: 02/02/21 19:00 Dose: 100 mg Documented by: Sodium Chloride (Normal Saline) 1,000 mls @ 1,000 mls/hr IV ASDIRECTED MACO Last Admin: 02/02/21 17:15 Dose: 1,000 mls/hr Documented by: Piperacillin Sod/Tazobactam (Sod 3.375 gm/ Sodium Chloride) 100 mls @ 200 mls/hr IV STAT ONE Stop: 02/02/21 17:37 Last Admin: 02/02/21 17:22 Dose: 200 mls/hr Documented by: Norepinephrine Bitartrate 4 mg (/ Dextrose/Water) 250 mls @ 15 mls/hr IV TITRATE MACO; Protocol Last Admin: 02/02/21 18:58 Dose: 4 mcg/min, 15 mls/hr Documented by: Phytonadione 10 mg/ Sodium (Chloride) 101 mls @ 300 mls/hr IV ONETIME ONE Stop: 02/02/21 19:10 Last Admin: 02/02/21 19:00 Dose: 300 mls/hr Documented by: Sodium Chloride (Normal Saline) 1,000 mls @ 1,000 mls/hr IV ASDIRECTED MACO Lactulose (Lactulose Soln 10 Gm/15 Ml 30 Ml Ud Cup) 20 gm PO Q6H MACO Lorazepam (Lorazepam 2 Mg/Ml Sdv) 0.5 mg IVPUSH STAT ONE Stop: 02/02/21 19:08 Last Admin: 02/02/21 19:27 Dose: 0.5 mg Documented by: Morphine Sulfate (Morphine 2 Mg/Ml Syringe) 2 mg IVPUSH ONETIME ONE Stop: 02/02/21 17:30 Last Admin: 02/02/21 17:35 Dose: 2 mg Documented by: Morphine Sulfate (Morphine Oral Concentrate 20 Mg/Ml 30 Ml Bottle) 10 mg PO Q1H PRN PRN Reason: Pain Morphine Sulfate (Morphine 10 Mg/Ml Sdv) 10 mg IVPUSH Q1H PRN PRN Reason: Pain Ondansetron HCl (Ondansetron 4 Mg/2 Ml Sdv) 4 mg IVPUSH Q4H PRN PRN Reason: Nausea Sodium Chloride (Sodium Chloride 0.9% 10 Ml Syringe) 10 ml FLUSH ASDIRECTED PRN PRN Reason: Keep Vein Open Last Admin: 02/02/21 20:12 Dose: 10 ml Documented by:
--- NOTE | 2021-02-03 11:39 | CR ---
[id number] RAD/RAD Abdomen Flat Plate 1V EXAM: RAD Abdomen Flat Plate 1V INDICATION: ABDOMINAL PAIN, DISTENTION, HEPATORENAL FAILURE COMPARISON: None. Discussion/Impression: Unobstructed bowel gas pattern. No radiographically evident pneumoperitoneum. Castro Pineda MD 02/03/21 0139 Thank you for allowing us to participate in the care of your patient.
== END 2021-02-02 22:14 | disposition expired | DRG 432 ==
LOC: VM.ED 15:46 → VM.MS 19:08
PROVIDERS: ADMIT Nurse Practitioner Family; ATTEND Internal Medicine
PROC: 3E033XZ Introduction of Vasopressor into Peripheral Vein, Percutaneous Approach (ICD-10-PCS; principal; 2021-02-02)
PROC: 30233K1 Transfusion of Nonautologous Frozen Plasma into Peripheral Vein, Percutaneous Approach (ICD-10-PCS; 2021-02-02)
DX: F10.129 Alcohol abuse with intoxication, unspecified (principal); Y90.9 Presence of alcohol in blood, level not specified; K70.10 Alcoholic hepatitis without ascites; K76.7 Hepatorenal syndrome; N17.9 Acute kidney failure, unspecified; D68.9 Coagulation defect, unspecified; K92.2 Gastrointestinal hemorrhage, unspecified; F10.229 Alcohol dependence with intoxication, unspecified; Y90.7 Blood alcohol level of 200-239 mg/100 ml; Z51.5 Encounter for palliative care; Z66 Do not resuscitate; Z20.822 Contact with and (suspected) exposure to COVID-19; I10 Essential (primary) hypertension; R57.0 Cardiogenic shock; F17.210 Nicotine dependence, cigarettes, uncomplicated; R41.0 Disorientation, unspecified; Z98.890 Other specified postprocedural states; Z79.899 Other long term (current) drug therapy; Z88.8 Allergy status to other drugs, medicaments and biological substances
CPT/HCPCS: 36415; 36430; 71045; 74018; 74019; 80053; 80305-QW; 80307; 81001; 83605; 83735; 84100; 84484; 85025; 85610; 85730; 86900; 86901; 87040; 93005; 93010; 99284; J1720; J2060; J2270; J2543; J3360; J3430; J7030; J7060; P9017; U0002